=== PATIENT | female | born 1970 | race Caucasian/White ===

== ENCOUNTER 2024-08-22 15:14 | Observation (INO) ==
--- NOTE | 2024-08-22 15:46 | Emergency Department Note ---
HPI - General Adult General Chief complaint: Weakness Stated complaint: WEAKNESS Time Seen by Provider: 08/22/24 15:38 Source: patient and family Mode of arrival: walk-in Limitations: no limitations History of Present Illness HPI narrative: This is a 53 year old female patient that presents to the ER with c/o chest pain, SOB, diarrhea, cough, congestion and feeling weak all over. Patient denies any numbness, tingling, weakness, abdominal pain, fever, chills or N/V Associated symptoms: Reports chest pain and cough Treatments prior to arrival: Reports none Related Data Previous Rx's Medication Instructions Recorded cyclobenzaprine 10 mg tablet 10 mg PO TID PRN muscle spasm #15 06/22/24 tabs ketorolac 10 mg tablet 10 mg PO Q6H PRN pain #20 tabs 06/22/24 ketorolac 10 mg tablet 10 mg PO Q6H PRN pain #20 tabs 07/30/24 tizanidine 2 mg capsule 2 mg PO TID PRN muscle spasticity 07/30/24 #10 caps Allergies Allergy/AdvReac Type Severity Reaction Status Date / Time clindamycin Allergy Verified 08/22/24 15:32 Penicillins Allergy Verified 08/22/24 15:32 sumatriptan (From Imitrex) Allergy Verified 08/22/24 15:32 Review of Systems Status of ROS 10 or more systems reviewed and unremark able except as noted in history and below Constitutional Denies: fever, chills, change in weight, fatigue, malaise or night sweats Eyes Denies: change in vision, blurry vision, blind spots or light sensitivity Ears, nose, mouth, and throat Denies: throat pain, neck pain, throat swelling, difficulty swallowing, hoarseness or mouth pain Cardiovascular Reports: chest pain; Denies: palpitations, edema or swelling of feet/ankles Respiratory Reports: shortness of breath and cough; Denies: wheezing, stridor, pain on inspiration or change in phlegm color Gastrointestinal Reports: diarrhea; Denies: abdominal pain, nausea, vomiting, coffee grounds in vomit, heartburn, constipation or bloating Genitourinary Denies: painful urination, urinary frequency, urinary urgency, urinary incontinence, blood in urine or difficulty voiding Musculoskeletal Denies: back pain, neck pain, extremity pain, extremity swelling, joint pain or limited range of motion Integumentary/Breast Denies: rash, itching, redness, skin pain, skin tenderness or skin swelling Neurological Denies: headache, numbness in extremities, weakness in extremities, lack of coordination or dizziness Psychiatric Denies: anxiety, mood swings, panic attacks, change in sleep pattern or hopelessness Endocrine Denies: excessive urination, excessive thirst, fatigue, cold intolerance, excessive sweating, flushing or heat intolerance Hematologic/Lymphatic Denies: easy bruising, easy bleeding or enlarged lymph nodes Allergic/Immunologic Denies: hives, throat swelling or tongue swelling PFSH PFS Medical History (Updated 07/30/24 @ 07:39 by Fortino Morrissey NP) Dental caries Cholecystectomy planned Encounter for tubal ligation Carpal tunnel syndrome DDD (degenerative disc disease) Migraine COPD (chronic obstructive pulmonary disease) Surgical History (Updated 08/22/24 @ 15:35 by Marguerite Sheriff RN) History of shoulder surgery History of tubal ligation History of cholecystectomy H/O left knee surgery History of carpal tunnel surgery Social History Smoking status: unknown if ever smoked Within the past year, how often did you have a drink containing alcohol: never Score interpretation: A score less than 3 is consistent with normal alcohol consumption. Exam Constitutional: normal general appearance and no apparent distress Vital Signs - 24 hr 08/22/24 15:24 Temperature 98.1 F Pulse Rate 87 Respiratory Rate 19 Blood Pressure 141/65 Pulse Oximetry 97 Oxygen Delivery Me thod Room Air HENMT: normocephalic, head/scalp atraumatic, hearing grossly normal bilaterally, external ears normal, nasal mucous membranes normal, external nose normal, oral mucous membranes normal and oropharynx normal Eyes: PERRL, EOMs intact bilaterally, conjunctivae normal, no scleral icterus and no papilledema Neck/C-Spine: visual inspection normal and trachea midline Lymph: no lymphadenopathy noted Chest: inspection of chest normal Respiratory: breath sounds equal bilaterally, normal respiratory effort, clear to auscultation bilaterally, no wheezes, no rales, no retractions and no use of accessory muscles Cardiovascular: normal heart rate noted, regular rhythm noted, no gallop, no rub, no murmur, no JVD, no clicks, peripheral pulses 2+ throughout and no additional abnormal heart sounds Gastrointestinal: abdomen normal to inspection, abdomen soft to palpation, nontender to palpation, nontender to percussion, nondistended, normoactive bowel sounds, no hepatosplenomegaly, no masses, no pulsatile mass, no ascites and no hernia Genitourinary: no CVA tenderness Back/Pelvis: spine normal to inspection Extremities: normal to inspection, normal to palpation, no tenderness, full ROM, no joint enlargement and no deformity Neurology: no movement abnormality noted, no focal motor deficit noted, no sensory deficits noted, gait normal, speech normal, coordination normal, no fasciculations noted and GCS normal Psychiatry: mental status grossly normal, oriented x3, thought process normal, cooperative, affect normal, psychomotor activity normal and memory normal Skin: skin color normal Course Course Hospital Course: 1656: due to patients family hx, risk factors and medical hx will admit patient to the medical floor for further evaluation and treatment. VSS, no s/s of acute distress noted Vital Signs Vital signs: Vital Signs Temperature 98.1 F 08/22/24 15:24 Pulse Rate 87 08/22/24 15:24 Respiratory Rate 19 08/22/24 15:24 Blood Pressure 141/65 08/22/24 15:24 Pulse Oximetry 97 08/22/24 15:24 Oxygen Delivery Method Room Air 08/22/24 15:24 Temperature 98.1 F 08/22/24 15:24 Pulse Rate 87 08/22/24 15:24 Respiratory Rate 19 08/22/24 15:24 Blood Pressure 141/65 08/22/24 15:24 Pulse Oximetry 97 08/22/24 15:24 Oxygen Delivery Method Room Air 08/22/24 15:24 Medical Decision Making Differential Diagnosis Differential Diagnosis: viral illness Medical Records Medical records reviewed: Yes I reviewed the patient's medical records Lab Data Lab results reviewed: Yes I reviewed the patient's lab results Labs: Lab Results 08/22/24 Range/Units 15:50 WBC 6.5 (4.3-9.3) K/uL RBC 4.7 (4.00-5.50) M/uL Hgb 13.3 (12.5-15.8) gm/dL Hct 40.2 (35.9-46.7) % MCV 85.6 (81.0-93.7) fl MCH 28.4 (27.6-32.2) pg MCHC 33.2 (33.1-35.3) g/dl RDW 16.3 H (11.4-14.2) % Plt Count 200 (152-353) K/uL MPV 8.4 (6.9-10.8) fl Gran % 70.6 (47.8-71.3) % Lymph % (Auto) 18.8 L (20.0-43.0) % Whiteside % (Auto) 6.0 (3.6-9.8) % Eos % (Auto) 4.2 H (0.4-2.8) % Baso % (Auto) 0.4 (0.1-0.85) Lymph # (Auto) 1.2 (1.1-3.1) Whiteside # (Auto) 0.4 L (1.1-3.1) Eos # (Auto) 0.3 H (0.0-0.2) Baso # (Auto) 0.0 (0.0-0.1) Absolute Gran (auto) 4.6 (2.3-6.0) D-Dimer 114 (100-600) ng/mL Sodium 142 (136-145) mmol/L Potassium 4.1 (3.6-5.2) mmol/L Chloride 106.0 (98-107) mmol/L Carbon Dioxide 27 (21-32) mmol/L Anion Gap 9.0 (4-14) mEq/L BUN 14 (7-18) mg/dL Creatinine 1.0 (0.6-1.3) mg/dL Estimated GFR 68.2 (>59.9) Glucose 222 H (70-110) mg/dL Calcium 8.3 L (8.5-10.1) mg/dL Total Bilirubin 0.33 (0.0-1.0) mg/dL AST 14 L (15-37) U/L ALT 19 L (30-65) U/L Alkaline Phosphatase 119 (50-136) U/L Troponin I High Sens 5.70 (4.0-60.4) ng/L Total Protein 7.6 (6.4-8.2) g/dL Albumin 3.3 L (3.4-5.0) g/dL Lipase 34.0 (16.0-77.0) U/L COVID-19 (GUS) Not detected (Not Detectd) Influenza Type A Ag Negative (Negative) Influenza Type B Ag Negative (Negative) Imaging Data Chest x-ray: Attestation: I have reviewed the pertinent imaging results. ECG Data Attestation: I have reviewed the pertinent ECG results. Discharge Plan Discharge Patient Disposition: Admitted As Observation Condition: Stable Chief Complaint: Weakness Clinical Impression: Chest pain, Diarrhea Prescriptions: No Action ketorolac 10 mg tablet 10 mg PO Q6H PRN (Reason: pain) Qty: 20 0RF Rx Instructions: maximum total duration of 5 days from all oral, intranasal, or parenteral formulations cyclobenzaprine 10 mg tablet 10 mg PO TID PRN (Reason: muscle spasm) Qty: 15 0RF ketorolac 10 mg tablet 10 mg PO Q6H PRN (Reason: pain) Qty: 20 0RF Rx Instructions: Take 1 tablet every 6 hours as needed for pain. maximum total duration of 5 days from all oral, intranasal, or parenteral formulations tizanidine 2 mg capsule 2 mg PO TID PRN (Reason: muscle spasticity) Qty: 10 0RF Rx Instructions: Take 1 tablet up to 3 times per day as needed. Print Language: Telugu Referrals: Chris Hatch III [Primary Care Provider] - Time of Disposition: 17:01
[2024-08-22 16:06] LABS: Basophils%(Percent) Auto 0.4 (0.1-0.85); Eosinophils#(Absolute)Auto 0.3 (0.0-0.2); Eosinophils%(Percent) Auto 4.2 % (0.4-2.8); Granulocytes % - Auto 70.6 % (47.8-71.3); Granulocytes#(Absolute)- Auto 4.6 (2.3-6.0); Hematocrit 40.2 % (35.9-46.7); Mean Corpuscular Volume 85.6 fl (81.0-93.7); Monocytes #(Absolute)- Auto 0.4 (1.1-3.1); Platelet Count 200 K/uL (152-353); White Blood Count 6.5 K/uL (4.3-9.3)
[2024-08-22 16:15] LABS: Potassium 4.1 mmol/L (3.6-5.2)
[2024-08-22 17:02] LABS: PH BODY FLUID EXCP BLOOD 6.5 (5 - 9); Urine Appearance CLEAR (CLEAR); Urine Blood NEGATIVE (NEG - TRACE); Urine Color YELLOW (STRAW/YELL.); Urine Urobilinogen Normal (NORMAL)
[2024-08-22] MEDS ORDERED: ASPIRIN 81 MG TAB.CHEW ONE (17:48)
[2024-08-22] MEDS: NITROGLYCERIN 1 GM OINT...G. TD ONE (17:49)
[2024-08-22] MEDS: ASPIRIN 81 MG TAB.CHEW PO ONE (17:49)
[2024-08-22] MEDS ORDERED: NITROGLYCERIN 1 GM OINT...G. TD ONE (17:49)
[2024-08-22] MEDS ORDERED: MORPHINE SULFATE 2 MG/ML CARTRIDGE IV PRN (18:22)
[2024-08-22] MEDS: NITROGLYCERIN 1 GM OINT...G. TD SCH (19:27)
[2024-08-22] MEDS: CODEINE PHOSPHATE/GUAIFENESIN 200/20 MG/ 10 ML LIQUID PO ONE (20:35)
[2024-08-23 05:36] LABS: Basophils%(Percent) Auto 0.4 (0.1-0.85); Eosinophils#(Absolute)Auto 0.2 (0.0-0.2); Eosinophils%(Percent) Auto 3.7 % (0.4-2.8); Granulocytes % - Auto 66.2 % (47.8-71.3); Granulocytes#(Absolute)- Auto 4.3 (2.3-6.0); Hematocrit 37.3 % (35.9-46.7); Mean Corpuscular Volume 84.7 fl (81.0-93.7); Monocytes #(Absolute)- Auto 0.4 (1.1-3.1); Monocytes %(Percent)- Auto 6.4 % (3.6-9.8); Platelet Count 180 K/uL (152-353); White Blood Count 6.4 K/uL (4.3-9.3)
[2024-08-23 05:47] LABS: INR 0.94
[2024-08-23 06:09] LABS: Potassium 3.8 mmol/L (3.6-5.2)
[2024-08-23 09:03] LABS: Amphetamine Screen Urine NEG. (NEGATIVE); Cannabinoid Screen Urine NEG. (NEGATIVE); Cocaine Screen Urine NEG. (NEGATIVE); Methadone Screen Urine NEG. (NEGATIVE); Opiate Screen Urine NEG. (NEGATIVE)
[2024-08-23] MEDS: ASPIRIN 81 MG TAB.CHEW PO SCH (09:55)
--- NOTE | 2024-08-23 12:01 | Short Stay Summary ---
H&P: HPI History of Present Illness Chief complaint: CHEST PAIN, DIARRHEA Narrative: This is a 53-year-old white female patient that presented to the ER on yesterday (08/22/2024) for complaints of chest pain, shortness of breath, diarrhea, cough, congestion and generalized weakness. Known past medical history includes hypertension, hyperlipidemia, COPD, angina, CAD. She is followed by Dr. Guzman mortgage manager in [place]. Reports most recent heart cath March of this year. And due to follow-up in [place] for repeat echo. Her ED eval was negative for any acute or concerning findings. She was negative for COVID-19 and influenza. Due to complaints, risk factors and known family history patient was admitted for further observation and treatment including serial troponins and EKG. Review of Systems Status of ROS 10 or more systems reviewed and unremark able except as noted in history and below Constitutional Denies: fever, chills, change in weight, fatigue, malaise or night sweats Eyes Denies: change in vision, blurry vision, blind spots or light sensitivity Ears, nose, mouth, and throat Denies: throat pain, neck pain, throat swelling, difficulty swallowing, hoarseness or mouth pain Cardiovascular Reports: chest pain and shortness of breath with exertion; Denies: palpitations, edema or swelling of feet/ankles Respiratory Reports: shortness of breath and cough; Denies: wheezing, stridor, pain on inspiration or change in phlegm color Gastrointestinal Denies: abdominal pain, nausea, vomiting, coffee grounds in vomit, heartburn, diarrhea, constipation, bloating or difficulty swallowing Genitourinary Denies: painful urination, urinary frequency, urinary urgency, urinary incontinence, blood in urine or difficulty voiding Musculoskeletal Denies: back pain, neck pain, extremity pain, extremity swelling, joint pain or limited range of motion Integumentary/Breast Denies: rash, itching, redness, skin pain, skin tenderness or skin swelling Neurological Denies: headache, numbness in extremities, weakness in extremities, lack of coordination or dizziness Psychiatric Denies: anxiety, mood swings, panic attacks, change in sleep pattern or hopelessness Endocrine Denies: excessive urination, excessive thirst, fatigue, cold intolerance, excessive sweating, flushing or heat intolerance Hematologic/Lymphatic Denies: easy bruising, easy bleeding or enlarged lymph nodes Allergic/Immunologic Denies: hives, throat swelling, tongue swelling or wheezing PFSH PFSH Medical History (Updated 08/23/24 @ 11:48 by Savanna Tran NP) Dental caries Cholecystectomy planned Encounter for tubal ligation Carpal tunnel syndrome DDD (degenerative disc disease) Migraine COPD (chronic obstructive pulmonary disease) Surgical History History of shoulder surgery History of tubal ligation History of cholecystectomy H/O left knee surgery History of carpal tunnel surgery Family History (Updated 08/23/24 @ 11:39 by Savanna Tran NP) Father Myocardial infarction Brother Myocardial infarction Social History Smoking status: unknown if ever smoked Within the past year, how often did you have a drink containing alcohol: never Score interpretation: A score less than 3 is consistent with normal alcohol consumption. Problems where you live: other Problems where you live details: PT AND SPOUSE DISPLACED BY [employer] AND CURRENTLY STAYING AT THE [facility] Highest level of school completed/degree received: GED or equivalent Gender Identity: female Meds Home Medications and Allergies Home Medications Medication Instructions Recorded Confirmed Type tizanidine 2 mg capsule 2 mg PO TID PRN muscle spasticity 07/30/24 Rx #10 caps aspirin 325 mg tablet 325 mg PO DAILY Chest pain 30 days 08/23/24 Rx #30 tabs Allergies Allergy/AdvReac Type Severity Reaction Status Date / Time clindamycin Allergy Verified 08/22/24 15:32 Penicillins Allergy Verified 08/22/24 15:32 sumatriptan (From Imitrex) Allergy Verified 08/22/24 15:32 Exam Constitutional: normal general appearance, no apparent distress, abnormal body habitus (obese), no limitations and alert Vital Signs - 24 hr 08/22/24 15:24 08/22/24 17:03 08/22/24 18:03 Temperature 98.1 F 98.1 F Pulse Rate 87 87 Pulse Rate [Bilate ral] Respiratory Rate 19 17 19 Blood Pressure 141/65 141/65 Blood Pressure [Ri ght Arm] Pulse Oximetry 97 98 97 Oxygen Delivery Me thod Room Air Room Air 08/22/24 20:00 08/22/24 23:41 08/23/24 04:00 Temperature 97.9 F 97.8 F 98.3 F Pulse Rate Pulse Rate [Bilate ral] 79 Respiratory Rate 17 19 20 Blood Pressure Blood Pressure [Ri ght Arm] 107/49 106/59 134/76 Pulse Oximetry 99 96 95 Oxygen Delivery Me thod Room Air Room Air Room Air 08/23/24 08:00 Temperature 97.9 F Pulse Rate Pulse Rate [Bilate ral] 77 Respiratory Rate 18 Blood Pressure Blood Pressure [Ri ght Arm] 129/66 Pulse Oximetry 99 Oxygen Delivery Me thod Room Air HENMT: normocephalic, head/scalp atraumatic, hearing grossly normal bilaterally, external ears normal, nasal mucous membranes normal, external nose normal, oral mucous membranes normal and oropharynx normal Eyes: PERRL, EOMs intact bilaterally, conjunctivae normal, no scleral icterus and no papilledema Neck/C-Spine: visual inspection normal, trachea midline and supple Lymph: no lymphadenopathy noted Chest: inspection of chest normal and palpation of chest abnormal (tenderness left chest wall) Respiratory: breath sounds equal bilaterally, normal respiratory effort, auscultation abnormal, wheezing noted (inspiratory wheezes), no rales, no retractions and no use of accessory muscles Cardiovascular: normal heart rate noted, regular rhythm noted, no gallop, no rub, no murmur, no JVD, no clicks, peripheral pulses 2+ throughout and no additional abnormal heart sounds Gastrointestinal: abdomen normal to inspection, abdomen soft to palpation, nontender to palpation, nontender to percussion, nondistended, normoactive bowel sounds, no pulsatile mass and no ascites Genitourinary: no CVA tenderness Back/Pelvis: spine normal to inspection and no lumbar spine tenderness Extremities: normal to inspection, normal to palpation, no tenderness, full ROM, no joint enlargement and no deformity Neurology: no movement abnormality noted, no focal motor deficit noted, no sensory deficits noted, gait normal, speech normal, coordination normal, no fasciculations noted and GCS normal Psychiatry: mental status grossly normal, oriented x3, thought process normal, cooperative, affect normal, psychomotor activity normal and memory normal Skin: skin color normal, no wounds, no jaundice, no petechiae and no mottling Assessment and Plan Assessment and Plan (1) Chest pain: Assessment and Plan: Serial cardiac enzymes and EKG CBC and CMP daily Aspirin 324 mg p.o. daily Morphine 1 mg IV every 2 hours as needed for chest pain Nitroglycerin 1 g topical every 6 hours x 2 doses. Vital signs per protocol library monitor continuous Daily weight Qualifiers: Chest pain type: unspecified Qualified Code(s): R07.9 - Chest pain, unspecified Code(s): R07.9 - Chest pain, unspecified (2) Chest wall muscle strain: Assessment and Plan: Serial cardiac enzymes and EKG CBC and CMP daily Aspirin 324 mg p.o. daily Morphine 1 mg IV every 2 hours as needed for chest pain Nitroglycerin 1 g topical every 6 hours x 2 doses. Vital signs per protocol library monitor continuous Daily weight Encouraged cough and deep breathing exercises. Qualifiers: Encounter type: initial encounter Qualified Code(s): S29.011A - Strain of muscle and tendon of front wall of thorax, initial encounter Code(s): S29.011A - Strain of muscle and tendon of front wall of thorax, initial encounter (3) Hypertension: Assessment and Plan: Serial cardiac enzymes and EKG CBC and CMP daily Aspirin 324 mg p.o. daily Morphine 1 mg IV every 2 hours as needed for chest pain Nitroglycerin 1 g topical every 6 hours x 2 doses. Vital signs per protocol library monitor continuous Daily weight Continue home medications as directed Qualifiers: Hypertension type: primary hypertension Qualified Code(s): I10 - Essential (primary) hypertension Code(s): I10 - Essential (primary) hypertension (4) Mixed hyperlipidemia: Assessment and Plan: Serial cardiac enzymes and EKG CBC and CMP daily Aspirin 324 mg p.o. daily Morphine 1 mg IV every 2 hours as needed for chest pain Nitroglycerin 1 g topical every 6 hours x 2 doses. Vital signs per protocol library monitor continuous Daily weight Continue home medications as directed Code(s): E78.2 - Mixed hyperlipidemia (5) Cough: Assessment and Plan: Flu, COVID-19 negative swab in the ER Chest x-ray negative for acute findings Continue home medications as directed Albuterol inhaler every 4-6 hours as needed for cough/wheezing Qualifiers: Cough type: unspecified Qualified Code(s): R05.9 - Cough, unspecified Code(s): R05.9 - Cough, unspecified (6) COPD (chronic obstructive pulmonary disease): Assessment and Plan: Flu, COVID-19 negative swab in the ER Chest x-ray negative for acute findings Continue home medications as directed Albuterol inhaler every 4-6 hours as needed for cough/wheezing Qualifiers: COPD type: unspecified COPD Qualified Code(s): J44.9 - Chronic obstructive pulmonary disease, unspecified Code(s): J44.9 - Chronic obstructive pulmonary disease, unspecified (7) Abdominal pain: Assessment and Plan: CT abdomen pelvis without acute findings Pain control Cardiac diet as tolerated Monitor intake and output Qualifiers: Abdominal location: left upper quadrant Qualified Code(s): R10.12 - Left upper quadrant pain Code(s): R10.9 - Unspecified abdominal pain Plan Patient will be discharged home to follow-up as soon as possible with her mortgage manager to continue cardiac workup. She will continue her Home medications as directed. She was encouraged to return immediately for any new/worsening/worrisome symptoms. Results Labs Labs: CBC WBC 6.4 K/uL (4.3-9.3) 08/23/24 05:25 RBC 4.4 M/uL (4.00-5.50) 08/23/24 05:25 Hgb 12.7 gm/dL (12.5-15.8) 08/23/24 05:25 Hct 37.3 % (35.9-46.7) 08/23/24 05:25 MCV 84.7 fl (81.0-93.7) 08/23/24 05:25 MCH 28.7 pg (27.6-32.2) 08/23/24 05:25 MCHC 33.9 g/dl (33.1-35.3) 08/23/24 05:25 RDW 15.7 % (11.4-14.2) H 08/23/24 05:25 Plt Count 180 K/uL (152-353) 08/23/24 05:25 MPV 8.4 fl (6.9-10.8) 08/23/24 05:25 Gran % 66.2 % (47.8-71.3) 08/23/24 05:25 Lymph % (Auto) 23.3 % (20.0-43.0) 08/23/24 05:25 Canadian % (Auto) 6.4 % (3.6-9.8) 08/23/24 05:25 Eos % (Auto) 3.7 % (0.4-2.8) H 08/23/24 05:25 Baso % (Auto) 0.4 (0.1-0.85) 08/23/24 05:25 Lymph # (Auto) 1.5 (1.1-3.1) 08/23/24 05:25 Canadian # (Auto) 0.4 (1.1-3.1) L 08/23/24 05:25 Eos # (Auto) 0.2 (0.0-0.2) 08/23/24 05:25 Baso # (Auto) 0.0 (0.0-0.1) 08/23/24 05:25 Absolute Gran (auto) 4.3 (2.3-6.0) 08/23/24 05:25 BMP Sodium 144 mmol/L (136-145) 08/23/24 05:25 Potassium 3.8 mmol/L (3.6-5.2) 08/23/24 05:25 Chloride 108.0 mmol/L (98-107) H 08/23/24 05:25 Carbon Dioxide 28 mmol/L (21-32) 08/23/24 05:25 Anion Gap 8.0 mEq/L (4-14) 08/23/24 05:25 BUN 15 mg/dL (7-18) 08/23/24 05:25 Creatinine 0.9 mg/dL (0.6-1.3) 08/23/24 05:25 Estimated GFR 77.4 (>59.9) 08/23/24 05:25 Glucose 143 mg/dL (70-110) H 08/23/24 05:25 Calcium 8.0 mg/dL (8.5-10.1) L 08/23/24 05:25 Total Bilirubin 0.29 mg/dL (0.0-1.0) 08/23/24 05:25 AST 17 U/L (15-37) 08/23/24 05:25 ALT 18 U/L (30-65) L 08/23/24 05:25 Alkaline Phosphatase 112 U/L (50-136) 08/23/24 05:25 Total Protein 7.1 g/dL (6.4-8.2) 08/23/24 05:25 Albumin 3.1 g/dL (3.4-5.0) L 08/23/24 05:25 Cardiac Enzymes Troponin I High Sens 6.10 ng/L (4.0-60.4) 08/23/24 05:25 Liver Function Total Bilirubin 0.29 mg/dL (0.0-1.0) 08/23/24 05:25 AST 17 U/L (15-37) 08/23/24 05:25 ALT 18 U/L (30-65) L 08/23/24 05:25 Alkaline Phosphatase 112 U/L (50-136) 08/23/24 05:25 Total Protein 7.1 g/dL (6.4-8.2) 08/23/24 05:25 Albumin 3.1 g/dL (3.4-5.0) L 08/23/24 05:25 Urine Urine Color Yellow (STRAW/YELL.) 08/22/24 16:57 Urine Appearance Clear (CLEAR) 08/22/24 16:57 Ur Specific Castaner 1.020 (1.001-1.035) 08/22/24 16:57 Urine Protein Negative (NEGATIVE) 08/22/24 16:57 Urine Glucose (UA) Normal (NORMAL) 08/22/24 16:57 Urine Ketones Negative (NEGATIVE) 08/22/24 16:57 Urine Occult Blood Negative (NEG - TRACE) 08/22/24 16:57 Urine Nitrite Negative (NEGATIVE) 08/22/24 16:57 Urine Bilirubin Negative (NEGATIVE) 08/22/24 16:57 Urine Urobilinogen Normal (NORMAL) 08/22/24 16:57 Ur Leukocyte Esterase Negative (NEGATIVE) 08/22/24 16:57 Pulse Oximetry SpO2 results: 99% RA Attestation: I have reviewed the pertinent pulse oximetry results. ECG Attestation: I have reviewed the pertinent ECG results. ECG interpretation date: 08/23/24 ECG interpretation time: 03:47 Prior ECG tracings: available for review Interpretation: Sinus rhythm RATE 75 Normal P axis no changes from previous EKG Imaging Imaging ordered: Chest x-ray and CT scan - abdomen Radiologist's impression: EXAM: XR CHEST 1V HISTORY: Cough COMPARISON: 05/07/2024 FINDINGS: The trachea is midline. The cardiac silhouette is unremarkable . The lungs are clear without focal infiltrate or effusion. The bony thorax is unremarkable. IMPRESSION: No acute cardiopulmonary disease. THIS IS AN ELECTRONICALLY VERIFIED FINAL REPORT 08/22/2024 4:29 PM - Electronically signed by Christiano Jacinto MD EXAMINATION: CT ABDOMEN PELVIS WO CON HISTORY: WEAKNESS; CV/AB COMPARISON: None. TECHNIQUE: Contiguous noncontrast axial CT images of the abdomen and pelvis. Images are reviewed in the axial imaging plane with reformatted sagittal and coronal images. the above CT scan was done with automated exposure control and the mA and kV was adjusted to obtain quality images according to patient size. FINDINGS: Details of the organs are limited since intravenous and oral contrast were not used. The liver measures 16.6 by 26.5 by 19.4 cm. No focal liver lesions seen. Gallbladder not visualized which should be correlated with medical records. No bile duct dilatation. Mild fatty atrophy of the pancreas. Spleen measures 11.5 by 15.3 by 6.2 cm. Adrenal glands, kidneys, abdominal aorta appear intact. Details of the GI tract are limited since oral contrast was not used. Small and large bowels normal caliber. No evidence of bowel obstruction. No evidence of acute appendicitis. Moderate distention of the stomach with food. No ascites. Small amount of urine within the bladder. Uterus and adnexal regions appear intact. [id number] lumbar spondylosis. Pulmonary bases are clear. IMPRESSION: No evidence of bowel obstruction. No hydronephrosis. Borderline splenomegaly. Mild hepatomegaly. THIS IS AN ELECTRONICALLY VERIFIED FINAL REPORT 08/22/2024 4:44 PM - Electronically signed by Cassie Beauchamp MD DS: Providers Provider Date of admission: 08/22/24 17:13 Primary care physician: Chris Hatch III Admitting clinician: Anabella Schroeder Attending physician on admission: Mariana Arthur Attending physician on discharge: Mariana Arthur Discharging clinician: Savanna Tran Anticipated date of discharge: 08/23/24 DS: Summary Hospital Course Hospital Course: This is a 53-year-old white female patient that presented to the ER on yesterday (08/22/2024) for complaints of chest pain, shortness of breath, diarrhea, cough, congestion and generalized weakness. Known past medical history includes hypertension, hyperlipidemia, COPD, angina, CAD. She is followed by Dr. Guzman mortgage manager in [place]. Reports most recent heart cath March of this year. And due to follow-up in [place] for repeat echo. Her ED eval was negative for any acute or concerning findings. She was negative for COVID-19 and influenza. Due to complaints, risk factors and known family history patient was admitted for further observation and treatment including serial troponins and EKG. Her hospital Course was uneventful. Serial troponins and EKGs negative for acute cardiac event. Vital signs remained stable and symptoms were controlled. She will be discharged home to continue follow-up with her mortgage manager Dr. Guzman. We will contact him on Sunday to discuss. We did attempt to contact today however Dr. Guzman was not on-call. Status at Discharge Cognitive/behavioral status at discharge: Alert and oriented Functional status at discharge: independent ambulation Overall status at discharge: patient is back to baseline Time Spent with Patient Time attestation: Total time spent providing and/or coordinating discharge services: Time spent: greater than 30 minutes Discharge Plan Discharge Disposition: Home, Self-Care Condition: Stable Discharge Medications: New aspirin 325 mg tablet 325 mg PO DAILY 30 Days Qty: 30 0RF Continued tizanidine 2 mg capsule 2 mg PO TID PRN (Reason: muscle spasticity) Qty: 10 0RF Rx Instructions: Take 1 tablet up to 3 times per day as needed. Discontinued ketorolac 10 mg tablet 10 mg PO Q6H PRN (Reason: pain) Qty: 20 0RF Rx Instructions: maximum total duration of 5 days from all oral, intranasal, or parenteral formulations cyclobenzaprine 10 mg tablet 10 mg PO TID PRN (Reason: muscle spasm) Qty: 15 0RF ketorolac 10 mg tablet 10 mg PO Q6H PRN (Reason: pain) Qty: 20 0RF Rx Instructions: Take 1 tablet every 6 hours as needed for pain. maximum total duration of 5 days from all oral, intranasal, or parenteral formulations Discharge Orders: Discharge Order (Routine); Ordered 08/23/24 Ordered By: Savanna Tran Activity: resume usual activities as tolerated Diet: low fat, low cholesterol Interventions: Discharge Assessment Last Done: 08/23/24 11:46 MED/SURG & ICU Observation Charge Sheet Last Done: 08/23/24 11:48 Plan of Treatment: Continue follow-up with mortgage manager Dr. Guzman Continue home medications as directed Patient Instructions: Chest Pain (DC), COPD (Chronic Obstructive Pulmonary Disease) (DC), Acute Cough (GEN) Activity Restrictions/Additional Instructions: Continue all medications as directed. It is important that you keep your follow-up appoint with your mortgage manager Dr. Guzman to continue your cardiac workup. It is also important that you follow-up with your primary care provider-call on Sunday and schedule a follow-up appointment for hospital discharge follow-up. Return immediately for any new/worsening/worrisome symptoms. Contact this facility should should you have any difficulty obtaining a follow- up appointment. Forms: Portal/[employer] Info Access Inst Follow-Ups: Chris Hatch III [Primary Care Provider] - Jamie Guzman DO [Referring] -
[2024-08-23 12:21] VITALS: BP 134/71; PULSE 82; RESP 19; TEMP 98.4
== END 2024-08-23 12:27 | disposition home or self-care (01) ==
LOC: ED 15:14 → MS 15:14
PROVIDERS: ADMIT Family Medicine; ATTEND Family Medicine